=== PATIENT | male | born 1965 | race Caucasian/White ===

== ENCOUNTER 2017-01-07 22:58 | Emergency (ER) | payer BC, OTHER ==
--- NOTE | 2017-01-07 23:09 | PDOC ---
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 No trauma, No recent illness, no associated symptoms and he truly can not articulate what it is that he is feeling- he just say the he feels like he is drunk. Timing/Duration: 24 hours Severity: mild Modifying Factors: improves with: other (nothing makes it worse or better) Past History - Past Medical History Allergies/Adverse Reactions: Allergies Allergy/AdvReac Type Severity Reaction Status Date / Time No Known Allergies Allergy Verified 01/07/17 23:00 Home Medications: Ambulatory Orders Aspirin [ASA -] 81 mg PO DAILY 01/07/17 Insulin Pump Controller [Snap Insulin Pump Controller] 1 each MC DAILY 01/07/17 Metformin HCl [Glucophage] 1,000 mg PO BID 01/07/17 Diabetes: Yes (Insulin Pump) Review of Systems - Review of Systems Able to Perform ROS?: Yes Is the patient limited Lao proficient: No Constitutional: No: Symptoms Reported HEENTM: No: Symptoms Reported Respiratory: No: Symptoms reported Cardiac (ROS): No: Symptoms Reported ABD/GI: No: Symptoms Reported : No: Symptoms Reported Musculoskeletal: No: Symptoms Reported Integumentary: No: Symptoms Reported Neurological: No: Symptoms reported Psychiatric: No: Anxiety, Depression Endocrine: No: Symptoms Reported Hematologic/Lymphatic: No: Symptoms Reported All Other Systems: Reviewed and Negative *Physical Exam - Physical Exam General Appearance: Yes: Nourished, Appropriately Dressed. No: Apparent Distress HEENT: positive: EOMI, DEBBIE, Normal ENT Inspection, Normal Voice. negative: Scleral Icterus (R), Scleral Icterus (L) Neck: positive: Supple Respiratory/Chest: positive: Lungs Clear, Normal Breath Sounds Cardiovascular: positive: Regular Rhythm, Regular Rate. negative: Murmur Gastrointestinal/Abdominal: positive: Normal Bowel Sounds, Flat, Soft. 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 negative: Confused, Disoriented ED Treatment Course - LABORATORY CBC & Chemistry Diagram: 01/07/17 11:09 01/07/17 11:09 *DC/Admit/Observation/Transfer Diagnosis at time of Disposition: Lightheadedness, Dysphoric mood, Anxiety, Malaise - Discharge Dispostion Disposition: HOME Condition at time of disposition: Unchanged/Unknown Admit: No - Patient Instructions Additional Instructions: Mr. Vanegas- I am not certain why you are feeling this way. Every test we did tonight is normal. Please follow up with your regular physician later this week. Do not drive until they tell you they feel it is ok for you to do so. Continue your medicines as usual. Return to us if worse or any new symptoms occur. Hopefully this will pass quickly. Best- Dr. Manuel Hermosillo
[2017-01-07 23:16] VITALS: TEMP 98.3; BMI 30.9
[2017-01-07 23:23] LABS: BASOPHIL 2.4 % (0-2.0); EOSINOPHIL 2.9 % (0-4.5); MCH 29.5 pg (25.7-33.7); MCHC 34.4 g/dl (32.0-35.9); MEAN CELL VOLUME 85.7 fl (80-96); MEAN PLT VOLUME 9.3 fl (7.5-11.1); NEUTROPHILS 66.8 % (42.8-82.8); PLATELET COUNT 246 K/MM3 (134-434); RDW 12.7 % (11.9-15.9); WHITE BLOOD COUNT 9.3 K/mm3 (4.0-10.8)
[2017-01-07 23:29] LABS: PH,URINE 5.5 (4.5-8); URINE APPEARANCE Clear; URINE BILIRUBIN 1+ (NEGATIVE); URINE BLOOD Negative (NEGATIVE); URINE GLUCOSE (UA) Trace (NEGATIVE); URINE KETONE Trace (NEGATIVE); URINE LEUK ESTERASE Negative (NEGATIVE); URINE NITRITE Negative (NEGATIVE); URINE UROBILINOGEN 0.2 (0.2-1.0)
[2017-01-07 23:31] LABS: INR 0.96 (0.82-1.09); PROTHROMBIN TIME (PATIENT) 10.8 SEC (10.2-13.0)
[2017-01-07 23:31] LABS: URINE COLOR DK YELLOW; URINE PROTEIN 2+ (NEGATIVE)
[2017-01-07 23:52] LABS: ACETONE SERUM NEGATIVE (NEGATIVE)
[2017-01-07 23:56] LABS: ALBUMIN 4.6 g/dl (3.5-5.0); ALK PHOS 79 U/L (32-92); ANION GAP 8 (8-16); BILIRUBIN,TOTAL 0.6 mg/dl (0.2-1.0); CALCIUM 9.7 mg/dl (8.4-10.2); CO2 28 mmol/L (22-28); CPK 336 IU/L (39-308); CREATININE 0.9 mg/dl (0.6-1.3); GLUCOSE,RANDOM 85 mg/dl (74-106); SGOT/AST 26 U/L (10-42); SGPT/ALT 30 U/L (10-40); TOT PROT 7.7 g/dl (6.4-8.3)
[2017-01-08 00:07] LABS: TROPONIN I (DFP) < 0.03 ng/ml (0.03-0.50)
[2017-01-08 00:45] LABS: URINE BACTERIA RARE /hpf (NEGATIVE); URINE RBC 0-3 /hpf (0-3); URINE WBC 0-3 (3-5)
[2017-01-08 00:46] LABS: URINE MUCUS 1+
[2017-01-08 01:16] LABS: URINE MARIJUANA THC NEGATIVE ng/ml (CUTOFF=50)
[2017-01-08 01:22] VITALS: BP 137/76; PULSE 65
--- NOTE | 2017-01-08 10:23 | EKG ---
Test Reason : Blood Pressure : / mmHG Vent. Rate : 075 BPM Atrial Rate : 075 BPM P-R Int : 154 ms QRS Dur : 080 ms QT Int : 362 ms P-R-T Axes : 028 044 030 degrees QTc Int : 404 ms NORMAL SINUS RHYTHM NO PREVIOUS ECGS AVAILABLE Confirmed by MD GALICIA MARJORY ([id number]) on 01/08/2017 10:23:05 AM Referred By: AMANDEEP Confirmed By:HEAVENLY GALICIA MD
== END 2017-01-08 01:34 | disposition home or self-care (01) ==
LOC: FER 22:58
DX: R42 Dizziness and giddiness (principal); F34.1 Dysthymic disorder; F41.9 Anxiety disorder, unspecified; R53.81 Other malaise; Z79.82 Long term (current) use of aspirin; Z79.4 Long term (current) use of insulin; Z96.41 Presence of insulin pump (external) (internal); Z79.84 Long term (current) use of oral hypoglycemic drugs
CPT/HCPCS: 36415; 70450-TC; 71010-TC; 80053; 80307; 81003; 81015; 82009; 82553; 83605; 84484; 85025; 85610; 93005; 99282-25

== ENCOUNTER 2017-06-28 18:11 | Emergency (ER) | payer SELFPAY ==
[2017-06-28 18:46] VITALS: BP 152/82; PULSE 77; TEMP 98.3; BMI 30.3
--- NOTE | 2017-06-28 18:54 | PDOC ---
History of Present Illness - History of Present Illness Initial Comments: 06/28/17 19:04 Patient is a 52 M, with PMHx of DM, who presents today for possible rabies exposure. Patient was in contact with a person who was attacked by a coyote. States he had his hands on the open wounds of the victim after they were attacked. 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 He called the health department and they want him to be given a vaccination. Patient states that the coyote was not foaming at the mouth to his knowledge. This is his first time seeking medical treatment after the coyote attack. 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 No sore throat, No ear pain Cardiovascular: No chest pain or shortness of breath Respiratory:No cough, or wheezing. Gastrointestinal: No nausea, vomiting, diarrhea or constipation, No rectal bleeding Genitourinary: No dysuria, hematuria, or frequency Musculoskeletal: No joint or muscle pain or swelling Neurologic: No headache, vertigo, dizziness or loss of consciousness Psychiatric: No depression Skin: No rashes or easy bruising Endocrine: No increased thirst or abnormal weight change All other systems reviewed and normal PE GENERAL: The patient is awake, alert, and fully oriented, in no acute distress. HEAD: Normal with no signs of trauma. EYES: Pupils equal, round and reactive to light, extraocular movements intact, sclera anicteric, conjunctiva clear. EXTREMITIES: Normal range of motion, no edema. NEUROLOGICAL: Normal speech, normal gait. PSYCH: Normal mood, normal affect. SKIN: Warm, Dry, normal turgor, no rashes or lesions noted. <Nely Harrison - Last Filed: 06/28/17 19:04> - General History Source: Patient Exam Limitations: No Limitations - History of Present Illness Initial Comments: A portion of this note was documented by scribe services under my direction. I have reviewed the details of the note, within reason, and agree with the documentation. The case summary and management plan written by me. Assessment and plan: This is a 52-year-old male who was sent in by the health department for probable possible rabies exposure. Patient was given raises immune globulin and his first injection of rabies postexposure prophylaxis. Patient was given a schedule for when to return for the rest of his vaccines. Patient tolerated procedure well and was discharged. <Kendell Roper I - Last Filed: 06/28/17 19:31> - General Chief Complaint: Revisit,Rabies Injection Stated Complaint: RABIES EXPOSURE Time Seen by Provider: 06/28/17 18:28 Past History <Nely Harrison - Last Filed: 06/28/17 19:04> - Past Medical History COPD: No Diabetes: Yes (Insulin Pump) - Immunization History Immunization Up to Date: No - Suicide/Smoking/Psychosocial Hx Smoking History: Never smoked Have you smoked in the past 12 months: No Information on smoking cessation initiated: No Hx Alcohol Use: Yes (OCCAS.) Drug/Substance Use Hx: No Substance Use Type: None <Kendell Roper I - Last Filed: 06/28/17 19:31> - Past Medical History Allergies/Adverse Reactions: Allergies Allergy/AdvReac Type Severity Reaction Status Date / Time No Known Allergies Allergy Verified 06/28/17 18:23 Home Medications: Ambulatory Orders Aspirin [ASA -] 81 mg PO DAILY 01/07/17 Insulin Pump Controller [Snap Insulin Pump Controller] 1 each MC DAILY 01/07/17 Metformin HCl [Glucophage] 1,000 mg PO BID 01/07/17 Atorvastatin Ca [Lipitor] 80 mg PO HS 06/28/17 Review of Systems - Review of Systems Comments:: 06/28/17 19:06 see HPI <Nely Harrison - Last Filed: 06/28/17 19:04> *Physical Exam - Vital Signs Last Vital Signs Temp Pulse Resp BP Pulse Ox 98.3 F 77 20 152/82 97 06/28/17 18:14 06/28/17 18:14 06/28/17 18:14 06/28/17 18:14 06/28/17 18:14 - Physical Exam Comments: 06/28/17 19:06 see HPI <Nely Harrison - Last Filed: 06/28/17 19:04> - Vital Signs Last Vital Signs Temp Pulse Resp BP Pulse Ox 98.3 F 77 20 152/82 97 06/28/17 18:14 06/28/17 18:14 06/28/17 18:14 06/28/17 18:14 06/28/17 18:14 <Kendell Roper I - Last Filed: 06/28/17 19:31> *DC/Admit/Observation/Transfer - Attestations Scribe Attestion: 06/28/17 19:05 Documentation prepared by Nely Harrison, acting as vice president medical affairs for Kendell Roper MD. <Nely Harrison - Last Filed: 06/28/17 19:04> - Discharge Dispostion Admit: No <Kendell Roper I - Last Filed: 06/28/17 19:31> Diagnosis at time of Disposition: Rabies exposure - Discharge Dispostion Disposition: HOME - Patient Instructions Printed Discharge Instructions: DI for Rabies Vaccine Additional Instructions: Return to the ER as per the schedule you're given by the health department for the rest of your rabies vaccines. Return to the emergency department immediately with ANY new, persistent or worsening symptoms. Continue any medications as previously prescribed by your physician. You should follow up with your primary doctor as soon as possible regarding today's emergency department visit discussed with your doctor as well as the health Department whether or not he they want you to have the fifth rabies vaccine given the fact that you are a type I diabetic and by definition somewhat immunocompromised. . Please make sure your doctor reviews the results of your emergency evaluation. Thank you for coming to the Emergency Department today for your care. It was a pleasure to see you today. Please note that your evaluation is INCOMPLETE until you follow-up with your doctor.
[2017-06-28] MEDS ORDERED: RABIES VACCINE (PCEC)/PF 2.5 UNIT/VIAL IM ONE (18:55)
[2017-06-28] MEDS ORDERED: RABIES IMMUNE GLOBULIN 300 UNITS/2 ML VIAL IM ONE (18:55)
[2017-06-28] MEDS ORDERED: RABIES IMMUNE GLOBULIN 300 UNITS/2 ML VIAL ONE (19:01)
== END 2017-06-28 19:38 | disposition home or self-care (01) ==
LOC: FER 18:11
PROC: 3E0234Z Introduction of Serum, Toxoid and Vaccine into Muscle, Percutaneous Approach (ICD-10-PCS; principal; 2017-06-28)
DX: Z20.3 Contact with and (suspected) exposure to rabies (principal); E11.9 Type 2 diabetes mellitus without complications; Z79.4 Long term (current) use of insulin
CPT/HCPCS: 90375; 90675; 99281-25

== ENCOUNTER 2017-07-01 08:23 | Emergency (ER) | payer SELFPAY ==
[2017-07-01 08:29] VITALS: BP 148/81; PULSE 60; TEMP 97.7; BMI 30.3
--- NOTE | 2017-07-01 08:33 | PDOC ---
History of Present Illness - General Chief Complaint: Revisit,Rabies Injection Stated Complaint: rabies Time Seen by Provider: 07/01/17 08:30 - History of Present Illness Initial Comments: 07/01/17 08:47 52yo male with hx of DM presents for his 2nd rabies vaccine. Pt had an exposure to a wound with a poss rabies vaccine over the weekend. Pt states his neighbor was being attacked by a coyote and he went out to cover the wound and had direct exposure to the wound. 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 Pt received the rabies immunoglobulin over the weekend along with the first rabies vaccine. Pt has the vaccine schedule. Denies reaction to the vaccine or the immunoglobulin. Pt denies all other complaints. No somatic complaints today. PMHx: dm Allergies: nkda PSHx: denies Past History - Past Medical History Allergies/Adverse Reactions: Allergies Allergy/AdvReac Type Severity Reaction Status Date / Time No Known Allergies Allergy Verified 07/01/17 08:24 Home Medications: Ambulatory Orders Aspirin [ASA -] 81 mg PO DAILY 01/07/17 Insulin Pump Controller [Snap Insulin Pump Controller] 1 each MC DAILY 01/07/17 Metformin HCl [Glucophage] 1,000 mg PO BID 01/07/17 Atorvastatin Ca [Lipitor] 80 mg PO HS 06/28/17 COPD: No Diabetes: Yes (Insulin Pump) - Immunization History Immunization Up to Date: No - Suicide/Smoking/Psychosocial Hx Smoking History: Never smoked Have you smoked in the past 12 months: No Hx Alcohol Use: No Drug/Substance Use Hx: No Substance Use Type: None Review of Systems - Review of Systems Able to Perform ROS?: Yes Is the patient limited Lao proficient: No Constitutional: No: Chills, Fever HEENTM: No: Nose Congestion Respiratory: No: Cough, Shortness of Breath Cardiac (ROS): No: Chest Pain ABD/GI: No: Diarrhea, Nausea, Vomiting Musculoskeletal: No: Joint Pain, Muscle Weakness Integumentary: No: Erythema, Rash Neurological: No: Headache, Numbness, Paresthesia, Ataxia All Other Systems: Reviewed and Negative *Physical Exam - Vital Signs Last Vital Signs Temp Pulse Resp BP Pulse Ox 97.7 F 60 18 148/81 100 07/01/17 08:23 07/01/17 08:23 07/01/17 08:23 07/01/17 08:23 07/01/17 08:23 - Physical Exam General Appearance: Yes: Nourished, Apparent Distress HEENT: positive: EOMI, Normal ENT Inspection, Normal Voice Neck: positive: Supple Respiratory/Chest: positive: Lungs Clear, Normal Breath Sounds. 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 *DC/Admit/Observation/Transfer Diagnosis at time of Disposition: Rabies exposure, Need for rabies vaccination - Discharge Dispostion Disposition: HOME Condition at time of disposition: Stable Admit: No - Referrals Referrals: Anthony Hays [Non Staff, Medical] - - Patient Instructions Printed Discharge Instructions: DI for Rabies Vaccine Additional Instructions: Please return to the ED with any further complaints. Please return to the ED as instructed on the rabies vaccine schedule for your next vaccine. Please make an appointment to follow up with your PMD as needed. - Post Discharge Activity
[2017-07-01] MEDS ORDERED: RABIES VACCINE (PCEC)/PF 2.5 UNIT/VIAL IM ONE (08:38)
[2017-07-01] MEDS ORDERED: DIPHTH,PERTUSS(ACELL),TET 0.5 ML DISP.SYRIN IM ONE (08:41)
== END 2017-07-01 08:50 | disposition home or self-care (01) ==
LOC: FER 08:23
PROC: 3E0234Z Introduction of Serum, Toxoid and Vaccine into Muscle, Percutaneous Approach (ICD-10-PCS; principal; 2017-07-01)
PROC: 3E0234Z Introduction of Serum, Toxoid and Vaccine into Muscle, Percutaneous Approach (ICD-10-PCS; 2017-07-01)
DX: Z23 Encounter for immunization (principal); Z20.3 Contact with and (suspected) exposure to rabies
CPT/HCPCS: 90675; 90715; 99281-25